=== PATIENT | female | born 1990 | race Caucasian/White ===

== ENCOUNTER → 2017-01-25 | Outpatient (CLI) | payer OTHER ==
[~2017-01-25] MED LIST: ADVAIR HFA 115-28 GM INH; ASPIR 8181 MG PO; COL-RITE250 MG PO; PERCOCET 5-3251 EACH PO; PHENERGAN 12.12.5 M1 PO; PROZAC20 MG PO; TOPAMAX25 MG PO
== END ==
LOC: KOH-I 15:06
DX: S83.511D Sprain of anterior cruciate ligament of right knee, subsequent encounter (principal)
CPT/HCPCS: 73721

== ENCOUNTER → 2017-02-02 | Day surgery (SDC) | payer OTHER ==
[~2017-02-02] VITALS: Ht 152.4 cm; Wt 105.7 kg
== END | disposition home or self-care (01) ==
LOC: OR 06:08
PROVIDERS: Orthopaedic Surgery
PROC: 0YQF4ZZ Repair Right Knee Region, Percutaneous Endoscopic Approach (ICD-10-PCS; principal; 2017-02-02 07:45)
DX: S83.511A Sprain of anterior cruciate ligament of right knee, initial encounter (principal); S83.281A Other tear of lateral meniscus, current injury, right knee, initial encounter; J45.909 Unspecified asthma, uncomplicated; Z87.19 Personal history of other diseases of the digestive system; Z90.89 Acquired absence of other organs; Z90.49 Acquired absence of other specified parts of digestive tract; Z79.899 Other long term (current) drug therapy; Z86.69 Personal history of other diseases of the nervous system and sense organs; X58.XXXA Exposure to other specified factors, initial encounter; Y93.44 Activity, trampolining
CPT/HCPCS: 73560; 76000; 84703; C1713; J0171; J0690; J1100; J2250; J2405; J3010; J7120

== ENCOUNTER 2017-03-14 22:29 | Emergency (ER) | payer OTHER | END 2017-03-15 04:30 | disposition home or self-care (01) | LOC: ER1 22:29 | DX: R07.81 Pleurodynia (principal); R06.02 Shortness of breath; J45.909 Unspecified asthma, uncomplicated; Z79.899 Other long term (current) drug therapy | CPT/HCPCS: 36415; 71020; 84484; 85379; 93005; 99285 ==

== ENCOUNTER → 2017-04-09 | Outpatient (CLI) | payer OTHER | LOC: HEART 5 08:50 | DX: R06.02 Shortness of breath (principal); R05 Cough; Z87.09 Personal history of other diseases of the respiratory system | CPT/HCPCS: 94060 ==